=== PATIENT | male | born 1960 | race Caucasian/White ===

== ENCOUNTER → 2017-01-03 | Outpatient (REF) ==
[~2017-01-03] MED LIST: CARDI-OMEGA1000 MG PO; EPIPEN1 MG/ML MR; INSULIN HUMA100 U/M1 SC; LANTUS100 U/ML SC; LEVOXYL0.15 MG PO; MEDROL 4MG DOSPA4 MG PO; MULTIVITAMIN1 TA1 PO; PHENERGAN 25 TA25 MG PO; PHENERGAN25 MG RC; VASOTEC20 MG PO; VITAMIN C500 MG PO
[2017-01-03 14:08] LABS: THYROID STIMULATING HORMONE 0.033 uIU/mL (0.465-4.680)
[2017-01-03 14:11] LABS: PSA-TOTAL 0.68 ng/mL (0-4)
== END ==
LOC: ZLAB.WCH 13:03
PROVIDERS: Internal Medicine
DX: Z01.89 Encounter for other specified special examinations (principal)
CPT/HCPCS: G0103

== ENCOUNTER → 2017-03-14 | Outpatient (REF) | LOC: ZLAB.WCH 20:11 | DX: Z01.89 Encounter for other specified special examinations (principal) ==

== ENCOUNTER → 2017-05-09 | Outpatient (REF) | LOC: ZLAB.WCH 10:19 | DX: Z01.89 Encounter for other specified special examinations (principal) ==

== ENCOUNTER → 2017-10-31 | Outpatient (REF) | LOC: ZLAB.WCH 15:40 | DX: Z01.89 Encounter for other specified special examinations (principal) ==

== ENCOUNTER → 2018-02-06 | Outpatient (REF) | LOC: ZLAB.WCH 16:32 | DX: Z01.89 Encounter for other specified special examinations (principal) ==

== ENCOUNTER → 2018-04-28 | Outpatient (REF) | LOC: ZLAB.WCH 15:46 | DX: Z01.89 Encounter for other specified special examinations (principal) ==

== ENCOUNTER → 2018-09-14 | Outpatient (REF) ==
[2018-09-14 15:07] LABS: THYROID STIMULATING HORMONE 0.537 uIU/mL (0.465-4.680)
[2018-09-14 15:10] LABS: PSA-TOTAL 0.89 ng/mL (0-4)
== END ==
LOC: ZLAB.WCH 14:07
PROVIDERS: Internal Medicine
DX: Z01.89 Encounter for other specified special examinations (principal)
CPT/HCPCS: G0103

== ENCOUNTER → 2019-03-15 | Outpatient (REF) | LOC: ZLAB.WCH 09:15 | DX: Z01.89 Encounter for other specified special examinations (principal) ==